=== PATIENT | female | born 1975 | race Caucasian/White ===

== ENCOUNTER 2016-11-18 17:43 | Emergency (ER) | payer OTHER ==
--- NOTE | 2016-11-18 18:02 | EDM.PDOC ---
ED HPI GENERAL MEDICAL PROBLEM - General Chief Complaint: Skin Complaint Stated Complaint: PT HAS SORE ON LT SIDE OF HEAD Time Seen by Provider: 11/18/16 17:54 - History of Present Illness INITIAL COMMENTS - FREE TEXT/NARRATIVE: HISTORY AND PHYSICAL: History of present illness: Patient's 41-year-old white female presents with a concern of a scalp lesion left postauricular area she states she's had similar isolated lesions in the past related to shingles on prior episodes this required infectious disease specialist to identify due to the atypical distribution. Patient denies fever chills nausea vomiting or any other concern Review of systems: As per history of present illness and below otherwise all systems reviewed and negative. Past medical history: As per history of present illness and as reviewed below otherwise noncontributory. Surgical history: As per history of present illness and as reviewed below otherwise noncontributory. Social history: No reported history of drug or alcohol abuse. Family history: As per history of present illness and as reviewed below otherwise noncontributory. Physical exam: HEENT: Patient has an area on her postauricular scalp that's excoriated with little bit of erythema and warmth there is no fluctuance no significant induration this does not appear to represent shingles in any manner that I have seen, normocephalic, pupils reactive, negative for conjunctival pallor or scleral icterus, mucous membranes moist, throat clear, neck supple, nontender, trachea midline. Lungs: Clear to auscultation, breath sounds equal bilaterally, chest nontender. Heart: S1S2, regular, negative for clicks, rubs, or JVD. Abdomen: Soft, nondistended, nontender. Negative for masses or hepatosplenomegaly. Negative for costovertebral tenderness. Pelvis: Stable nontender. Genitourinary: Deferred. Rectal: Deferred. Extremities: Atraumatic, negative for cords or calf pain. Neurovascular unremarkable. Neuro: Awake, alert, oriented. Cranial nerves II through XII unremarkable. Cerebellum unremarkable. Motor and sensory unremarkable throughout. Exam nonfocal. Diagnostics: None Therapeutics: None Impression: #1 cutaneous lesion left postauricular scalp etiology to be determined Definitive disposition and diagnosis as appropriate pending reevaluation and review of above. - Related Data Allergies Allergy/AdvReac Type Severity Reaction Status Date / Time cefixime [From Suprax] Allergy Hives Verified 11/18/16 17:50 vancomycin Allergy Hives Verified 11/18/16 17:50 Home Meds: Home Meds Cetirizine HCl/Pseudoephedrine [ZyrTEC-D] 1 tab PO Q12H 10/11/14 [History] Phentermine 30 mg PO DAILY 10/11/14 [History] medroxyPROGESTERone [Depo-Provera Contraceptive] 150 mg IM ASDIRECTED 10/11/14 [ History] Past Medical History Other HEENT History: allergies Other OB/BYN History: ovarian tumor removal x 2, c-sections, uterine exploratory surgery - Past Surgical History Other Oncologic Surgeries/Procedures: ovarian biopsies with tumor removal x 2 Social & Family History - Tobacco Use Smoking Status *Q: Never Smoker Second Hand Smoke Exposure: No - Alcohol Use Days Per Week of Alcohol Use: 0 - Recreational Drug Use Recreational Drug Use: No ED ROS GENERAL - Review of Systems Review Of Systems: ROS reveals no pertinent complaints other than HPI. ED EXAM, SKIN/RASH Exam: See Below (See dictation) Course - Vital Signs Text/Narrative:: Discussed with patient possible etiologies including atypical presentation of zoster she understands and acknowledges the inability to definitively diagnose that Hipolito expressed how her oncologist and primary medical doctor on prior Pretz was unable to them that this did ultimately involve infectious disease at this point she would prefer treatment as if this may represent a bacterial infection understanding limitations from a diagnostic standpoint in opts for empiric treatment as planned with Bactrim and pain management to follow with her doctor return as needed as discussed Departure - Departure Time of Disposition: 17:59 Disposition: Home, Self-Care 01 Condition: Good Clinical Impression: Cellulitis - Discharge Information Forms: ED Department Discharge Additional Instructions: The following information is given to patients seen in the emergency department who are being discharged to home. This information is to outline your options for follow-up care. We provide all patients seen in our emergency department with a follow-up referral. The need for follow-up, as well as the timing and circumstances, are variable depending upon the specifics of your emergency department visit. If you don't have a primary care physician on staff, we will provide you with a referral. We always advise you to contact your personal physician following an emergency department visit to inform them of the circumstance of the visit and for follow-up with them and/or the need for any referrals to a consulting specialist. The emergency department will also refer you to a specialist when appropriate. This referral assures that you have the opportunity for followup care with a specialist. All of these measure are taken in an effort to provide you with optimal care, which includes your followup. Under all circumstances we always encourage you to contact your private physician who remains a resource for coordinating your care. When calling for followup care, please make the office aware that this follow-up is from your recent emergency room visit. If for any reason you are refused follow-up, please contact the [facility] emergency department at and asked to speak to the emergency department charge nurse. Bactrim Tylenol No. 3 as prescribed follow-up primary medical doctor on today's return as needed as discussed
== END 2016-11-18 18:32 | disposition home or self-care (01) ==
LOC: MW.ED 17:43
CPT/HCPCS: 99282

== ENCOUNTER 2018-11-25 01:05 | Emergency (ER) | payer OTHER ==
[2018-11-25] MEDS ORDERED: Albuterol/Ipratropium 3.0-0.5 MG/3 ML Neb Soln ONE (01:25)
--- NOTE | 2018-11-25 01:53 | EDM.PDOC ---
<Victor Hugo Rogers - Last Filed: 11/25/18 01:54> ED HPI GENERAL MEDICAL PROBLEM - General Chief Complaint: Respiratory Problem Stated Complaint: ALLERGY Time Seen by Provider: 11/25/18 01:15 - History of Present Illness INITIAL COMMENTS - FREE TEXT/NARRATIVE: HISTORY AND PHYSICAL: History of present illness: 43-year-old female with a history of seasonal allergies presents to the emergency department for the evaluation of her shortness of breath.The patient informed me her allergies will have occasional flares when humidity rises which produces increased cough and shortness of breath. She had an uneventful day however this evening at around approximately 11 PM she developed shortness of breath, nasal congestion and a cough. She is concerned that she is having allergy exacerbation. Her to arriving to the emergency department She denies any recent fevers or chills. She has had no recent nausea or vomiting. Review of systems: As per history of present illness and below otherwise all systems reviewed and negative. Past medical history: As per history of present illness and as reviewed below otherwise noncontributory. Surgical history: As per history of present illness and as reviewed below otherwise noncontributory. Social history: No reported history of drug or alcohol abuse. Family history: As per history of present illness and as reviewed below otherwise noncontributory. Physical exam: Constitutional: Well developed well nourished HEENT: Atraumatic, normocephalic, pupils reactive, negative for conjunctival pallor or scleral icterus, mucous membranes moist, throat clear, neck supple, nontender, trachea midline. Lungs: Diffuse inspiratory and expiratory wheezes, breath sounds are equal. Heart: S1S2, regular, negative for clicks, rubs, or JVD. Abdomen: Soft, nondistended, nontender. Negative for masses or hepatosplenomegaly. Negative for costovertebral tenderness. Pelvis: Stable nontender. Genitourinary: Deferred. Rectal: Deferred. Extremities: Atraumatic, negative for cords or calf pain. Neurovascular unremarkable. Neuro: Awake, alert, oriented. Cranial nerves II through XII unremarkable. Cerebellum unremarkable. Motor and sensory unremarkable throughout. Exam nonfocal. Diagnostics: None Therapeutics: Duo-neb IM Solumedrol 0130: Patient's lung sounds significantly improved after nebulized DuoNeb. Bilaterally. Her respiratory effort is now easy Impression: Allergic Asthma Plan: [] Definitive disposition and diagnosis as appropriate pending reevaluation and review of above. - Related Data Allergies Allergy/AdvReac Type Severity Reaction Status Date / Time cefixime [From Suprax] Allergy Hives Verified 11/18/16 17:50 vancomycin Allergy Hives Verified 11/18/16 17:50 Home Meds: Home Meds Cyclobenzaprine [Flexeril] 10 mg PO ASDIRECTED PRN 11/18/16 [History] Meloxicam [Mobic] 15 mg PO ASDIRECTED PRN 11/18/16 [History] Zolpidem Tartrate [Ambien] 5 mg PO BEDTIME 11/18/16 [History] buPROPion HCl [Wellbutrin SR] 150 mg PO DAILY 11/18/16 [History] Past Medical History - Past Health History Medical/Surgical History: Denies Medical/Surgical History Other HEENT History: allergies 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: ovarian tumor removal x 2, c-sections, uterine exploratory surgery Musculoskeletal History: Reports: Fibromyalgia Psychiatric History: Reports: Depression - Past Surgical History Other Oncologic Surgeries/Procedures: ovarian biopsies with tumor removal x 2 Social & Family History - Family History Family Medical History: Noncontributory Course - Orders/Labs/Meds Orders: Active Orders 24 hr Category Date Time Status Communication Order [RC] STAT Care 11/25/18 01:55 Active Meds: Medications Discontinued Medications Generic Name Dose Route Start Last Admin Trade Name Freq PRN Reason Stop Dose Admin Albuterol/Ipratropium Confirm 11/25/18 01:25 Duoneb 3.0-0.5 Mg/3 Ml Administered 11/25/18 01:26 Dose 3 ml .ROUTE .STK-MED ONE Methylprednisolone Sodium Succinate 125 mg 11/25/18 01:54 Solu-Medrol IM 11/25/18 01:55 ONETIME ONE Departure - Departure Disposition: Home, Self-Care 01 Clinical Impression: Allergic asthma - Discharge Information Referrals: Marcin Page MD [Primary Care Provider] - Forms: ED Department Discharge Additional Instructions: The following information is given to patients seen in the emergency department who are being discharged to home. This information is to outline your options for follow-up care. We provide all patients seen in our emergency department with a follow-up referral. The need for follow-up, as well as the timing and circumstances, are variable depending upon the specifics of your emergency department visit. If you don't have a primary care physician on staff, we will provide you with a referral. We always advise you to contact your personal physician following an emergency department visit to inform them of the circumstance of the visit and for follow-up with them and/or the need for any referrals to a consulting specialist. The emergency department will also refer you to a specialist when appropriate. This referral assures that you have the opportunity for followup care with a specialist. All of these measure are taken in an effort to provide you with optimal care, which includes your followup. Under all circumstances we always encourage you to contact your private physician who remains a resource for coordinating your care. When calling for followup care, please make the office aware that this follow-up is from your recent emergency room visit. If for any reason you are refused follow-up, please contact the [facility] emergency department at and ask to speak to the emergency department charge nurse. [facility] Primary care- [place] [id number] Push hydration and use your inhaler every 6 hours with the spacer. Been given for the next 24 hours and then every 6 hours as needed. Start the Medrol Dosepak later today and please call and schedule a follow-up appointment in the clinic. Return to ER as needed and as discussed - My Orders Last 24 Hours: My Active Orders 11/25/18 01:55 Communication Order [RC] STAT - Assessment/Plan Last 24 Hours: My Active Orders 11/25/18 01:55 Communication Order [RC] STAT <Jolie Barajas - Last Filed: 11/25/18 01:59> ED HPI GENERAL MEDICAL PROBLEM - History of Present Illness INITIAL COMMENTS - FREE TEXT/NARRATIVE: This is Dr. Barajas dictating an addendum note History and physical are as above and the patient feels significantly improved after the DuoNeb. We will give IV Solu-Medrol and a spacer for home. Patient feels comfortable with discharge home and now only has coarse breath sounds on my evaluation. ED ROS GENERAL - Review of Systems Review Of Systems: ROS reveals no pertinent complaints other than HPI. ED EXAM, GENERAL - Physical Exam Exam: See Below (See dictation) Course - Orders/Labs/Meds Orders: Active Orders 24 hr Category Date Time Status Communication Order [RC] STAT Care 11/25/18 01:55 Active Departure - Departure Time of Disposition: 01:59 Condition: Good - My Orders Last 24 Hours: My Active Orders 11/25/18 01:55 Communication Order [RC] STAT - Assessment/Plan Last 24 Hours: My Active Orders 11/25/18 01:55 Communication Order [RC] STAT
[2018-11-25] MEDS ORDERED: methylPREDNISolone Sodium Succinate 125 MG/2 ML SDV IM ONE (01:54)
[2018-11-25 02:17] VITALS: BP 131/69
== END 2018-11-25 02:32 | disposition home or self-care (01) ==
LOC: MW.ED 01:05
DX: J45.909 Unspecified asthma, uncomplicated (principal); F32.9 Major depressive disorder, single episode, unspecified; Z79.899 Other long term (current) drug therapy; Z88.1 Allergy status to other antibiotic agents
CPT/HCPCS: 96372; 99283; J2930; 99282; J7620-GY

== ENCOUNTER 2021-04-07 19:03 | Emergency (ER) | payer OTHER ==
[2021-04-07 20:56] LABS: CORONAVIRUS COVID-19 NAA NEGATIVE (NEGATIVE); INFLUENZA A NAA NEGATIVE (NEGATIVE); INFLUENZA B NAA NEGATIVE (NEGATIVE)
[2021-04-07] MEDS ORDERED: Sodium Chloride 0.9% 1,000 ML IV ONE (21:50)
[2021-04-07 22:04] LABS: CARBON DIOXIDE,CO2 25.5 mmol/L (21.0-32.0); POTASSIUM,K 3.6 mmol/L (3.5-5.1)
[2021-04-08] MEDS ORDERED: Sulfamethoxazole/Trimethoprim 800-160 MG Tab PO ONE (00:05)
[2021-04-08] MEDS ORDERED: Acetaminophen 325 MG Tab PO ONE (00:11)
[2021-04-08] MEDS ORDERED: Ketorolac 15 MG/ML SDV IVPUSH STA (00:11)
--- NOTE | 2021-04-08 00:11 | EDM.PDOC ---
ED HPI GENERAL MEDICAL PROBLEM - General Chief Complaint: Fever Stated Complaint: FEVER,NAUSEA Time Seen by Provider: 04/07/21 22:11 - History of Present Illness INITIAL COMMENTS - FREE TEXT/NARRATIVE: HISTORY AND PHYSICAL: History of present illness: This is a 46-year-old female who presents ER today secondary to fever at home. Patient reports that she had recent breast reduction by Dr. Trotter at [facility] approximately 1 to 2 weeks ago. Patient reports that she was doing well and the wounds are healing extremely well however today she started having pain and discomfort to her left lateral breast and noticed fevers at home. Patient called Dr. Trotter and was instructed to come to the ED for further evaluation. Patient denies any recent nausea, vomiting, diarrhea, dysuria, frequency, urgency, chest pain, shortness of breath, URI symptoms. Patient reports that she does have slight nasal drainage which is not new for her. Patient reports that she has a history significant for fibromyalgia. Patient reports that she has not needed any pain medicines for several days now however she reports that the pain started increasing significantly yesterday and today as required taken Page. Review of systems: As per history of present illness and below otherwise all systems reviewed and negative. Past medical history: As per history of present illness and as reviewed below otherwise noncontributory. Surgical history: As per history of present illness and as reviewed below otherwise noncontributory. Social history: No reported history of drug abuse. Family history: As per history of present illness and as reviewed below otherwise noncontributory. Physical exam: This patient was seen and evaluated during the 2019 SARS-CoV-2 novel coronavirus pandemic period. Community viral transmission is ongoing at time of this encounter and the emergency department is operating under pandemic response procedures. Constitutional: Patient is oriented to person, place, and time. Appears well- developed and well-nourished. No distress. HEENT: Moist mucous membranes Head: Normocephalic and atraumatic Eyes: Right eye exhibits no discharge. Left eye exhibits no discharge. No scleral icterus Neck: Normal range of motion. No tracheal deviation present. Cardiovascular: Normal rate and regular rhythm. Pulmonary: Effort normal, no respiratory distress. Abdominal: No distention Musculoskeletal: Normal range of motion Neurologic: Alert and oriented to person, place and time. Skin: Mountain, warm and dry. Psychiatric: Normal mood and affect. Behavior is normal. Judgment and thought content normal. Nursing note and vital signs have been reviewed Patient's ER physical exam is significant for well-healing surgical incisions to her right breast with no fluctuance or erythema tenderness or warmth. Patient's left breast has well-healing incision however she does have some erythema and swelling tenderness and warmth to her lateral left breast. No fluctuance is identified. No purulent drainage noted. Diagnostics: WBC count markedly elevated at 19,000. Patient's lactic acid level is normal. Patient has a normal anion gap with a normal bicarb. Patient's Covid/influenza test were negative. Therapeutics: NSS x1 L, Bactrim DS No. 2 p.o. Assessment and plan: This is a 46-year-old female who presents ER today secondary to fever at home with increasing pain to her left breast. Patient is status post breast reduction. Patient spoken to Dr. Sergo Schuster and was instructed to come to the ED for further evaluation. Initial evaluation in the ED revealed a markedly elevated WBC count. Patient's lactic acid level was normal. Patient is clinically and hemodynamically stable with a normal blood pressure and does not appear to be toxic. Patient is well-appearing in the ED and has been resting comfortably throughout her visit. While in the ED, the remainder of her labs are unremarkable. I have paged Dr. Trotter through [facility] and have left a voicemail for him to call me back so I can discuss the case with him however at this time the patient would like to go home with antibiotics. I have instructed her that if Dr. Trotter does call and has any additional instructions that I would give her a call at home and let her know. Patient was given Bactrim DS 2 tablets p.o. x1 will be discharged home with a prescription for Bactrim DS 2 tabs p.o. twice daily x10 days and instructions to call Dr. Trotter tomorrow for follow-up in the next 1 to 2 days. Reassessment at the time of disposition demonstrates that the patient is in no acute distress. The patient has remained stable throughout the entire ED visit and is without objective evidence for acute process requiring urgent intervention or hospitalization. The patient is stable for discharge, counseling is provided as documented above, discussed symptomatic treatment and specific conditions for return. I have spoken with the patient/caregiver and discussed todays findings, in addition to providing specific details for the plan of care. Questions are answered and there is agreement with the plan. Definitive disposition and diagnosis as appropriate pending reevaluation and review of above. - Related Data Allergies Allergy/AdvReac Type Severity Reaction Status Date / Time cefixime [From Suprax] Allergy Hives Verified 04/07/21 20:27 vancomycin Allergy Hives Verified 04/07/21 20:27 Home Meds: Home Meds Cyclobenzaprine [Flexeril] 10 mg PO ASDIRECTED PRN 11/18/16 [History] Meloxicam [Mobic] 15 mg PO ASDIRECTED PRN 11/18/16 [History] Zolpidem Tartrate [Ambien] 5 mg PO BEDTIME 11/18/16 [History] buPROPion HCL [Wellbutrin SR] 150 mg PO DAILY 11/18/16 [History] Past Medical History - Past Health History Medical/Surgical History: Denies Medical/Surgical History Other HEENT History: allergies Other NUTRITIONALIST History: ovarian tumor removal x 2, c-sections, uterine exploratory surgery Musculoskeletal History: Reports: Fibromyalgia Psychiatric History: Reports: Depression - Past Surgical History Other Oncologic Surgeries/Procedures: ovarian biopsies with tumor removal x 2 Social & Family History - Family History Family Medical History: No Pertinent Family History - Tobacco Use Second Hand Smoke Exposure: No - Caffeine Use Caffeine Use: Reports: None - Recreational Drug Use Recreational Drug Use: No ED ROS GENERAL - Review of Systems Review Of Systems: See Below ED EXAM, GENERAL - Physical Exam Exam: See Below Course - Vital Signs Last Recorded V/S: Last Vital Signs Temp 101.4 F H 04/07/21 20:10 Pulse 103 H 04/07/21 20:10 Resp 20 04/07/21 20:10 BP 126/56 L 04/07/21 20:10 Pulse Ox 98 04/07/21 20:10 - Orders/Labs/Meds Orders: Active Orders 24 hr Category Date Time Status CULTURE BLOOD [BC] Stat Lab 04/07/21 22:02 Received CULTURE BLOOD [BC] Stat Lab 04/07/21 22:20 Received UA RFX ISABEL AND CULT IF INDIC [URIN] Stat Lab 04/07/21 21:28 Ordered Sulfamethoxazole/Trimethoprim [Septra DS] Med 04/08/21 00:05 Once 2 tab PO ONETIME ONE Blood Culture x2 Reflex Set [OM.PC] Stat Oth 04/07/21 21:49 Ordered Medication Orders Trimethoprim/Sulfamethoxazole (Sulfamethoxazole/Trimethoprim 800-160 Mg Tab) 2 tab PO ONETIME ONE Stop: 04/08/21 00:06 Labs: Laboratory Tests 04/07/21 04/07/21 04/07/21 Range/Units 20:15 21:38 21:38 WBC 17.21 H (4.0-11.0) K/uL RBC 4.14 L (4.30-5.90) M/uL Hgb 11.9 L (12.0-16.0) g/dL Hct 35.8 L (36.0-46.0) % MCV 86.5 (80.0-98.0) fL MCH 28.7 (27.0-32.0) pg MCHC 33.2 (31.0-37.0) g/dL RDW Std Deviation 41.3 (28.0-62.0) fl RDW Coeff of Sebastian 13 (11.0-15.0) % Plt Count 384 (150-400) K/uL MPV 10.10 (7.40-12.00) fL Neut % (Auto) 83.8 H (48.0-80.0) % Lymph % (Auto) 9.4 L (16.0-40.0) % Sen[place] % (Auto) 6.5 (0.0-15.0) % Eos % (Auto) 0.2 (0.0-7.0) % Baso % (Auto) 0.1 (0.0-1.5) % Neut # (Auto) 14.4 H (1.4-5.7) K/uL Lymph # (Auto) 1.6 (0.6-2.4) K/uL Sen[place] # (Auto) 1.1 H (0.0-0.8) K/uL Eos # (Auto) 0.0 (0.0-0.7) K/uL Baso # (Auto) 0.0 (0.0-0.1) K/uL Nucleated RBC % 0.0 /100WBC Nucleated RBCs # 0 K/uL Sodium 136 (136-145) mmol/L Potassium 3.6 (3.5-5.1) mmol/L Chloride 99 (98-107) mmol/L Carbon Dioxide 25.5 (21.0-32.0) mmol/L BUN 13 (7.0-18.0) mg/dL Creatinine 1.1 H (0.6-1.0) mg/dL Est Cr Clr Drug Dosing 64.46 mL/min Estimated GFR (MDRD) 53.5 ml/min Glucose 95 (74-106) mg/dL Lactic Acid (0.4-2.0) mmol/L Calcium 9.0 (8.5-10.1) mg/dL Total Bilirubin 0.6 (0.2-1.0) mg/dL AST 9 L (15-37) IU/L ALT 18 (14-63) IU/L Alkaline Phosphatase 73 (46-116) U/L Total Protein 7.5 (6.4-8.2) g/dL Albumin 2.8 L (3.4-5.0) g/dL Globulin 4.7 H (2.6-4.0) g/dL Albumin/Globulin Ratio 0.6 L (0.9-1.6) Lipase 145 (73-393) U/L HCG, Qual (NEG) Influenza Type A RNA NEGATIVE (NEGATIVE) Influenza Type B RNA NEGATIVE (NEGATIVE) SARS-CoV-2 RNA (IVETH) NEGATIVE (NEGATIVE) 04/07/21 04/07/21 Range/Units 21:38 22:02 WBC (4.0-11.0) K/uL RBC (4.30-5.90) M/uL Hgb (12.0-16.0) g/dL Hct (36.0-46.0) % MCV (80.0-98.0) fL MCH (27.0-32.0) pg MCHC (31.0-37.0) g/dL RDW Std Deviation (28.0-62.0) fl RDW Coeff of Sebastian (11.0-15.0) % Plt Count (150-400) K/uL MPV (7.40-12.00) fL Neut % (Auto) (48.0-80.0) % Lymph % (Auto) (16.0-40.0) % Sen[place] % (Auto) (0.0-15.0) % Eos % (Auto) (0.0-7.0) % Baso % (Auto) (0.0-1.5) % Neut # (Auto) (1.4-5.7) K/uL Lymph # (Auto) (0.6-2.4) K/uL Sen[place] # (Auto) (0.0-0.8) K/uL Eos # (Auto) (0.0-0.7) K/uL Baso # (Auto) (0.0-0.1) K/uL Nucleated RBC % /100WBC Nucleated RBCs # K/uL Sodium (136-145) mmol/L Potassium (3.5-5.1) mmol/L Chloride (98-107) mmol/L Carbon Dioxide (21.0-32.0) mmol/L BUN (7.0-18.0) mg/dL Creatinine (0.6-1.0) mg/dL Est Cr Clr Drug Dosing mL/min Estimated GFR (MDRD) ml/min Glucose (74-106) mg/dL Lactic Acid 0.7 (0.4-2.0) mmol/L Calcium (8.5-10.1) mg/dL Total Bilirubin (0.2-1.0) mg/dL AST (15-37) IU/L ALT (14-63) IU/L Alkaline Phosphatase (46-116) U/L Total Protein (6.4-8.2) g/dL Albumin (3.4-5.0) g/dL Globulin (2.6-4.0) g/dL Albumin/Globulin Ratio (0.9-1.6) Lipase (73-393) U/L HCG, Qual NEGATIVE (NEG) Influenza Type A RNA (NEGATIVE) Influenza Type B RNA (NEGATIVE) SARS-CoV-2 RNA (IVETH) (NEGATIVE) Meds: Medications Generic Name Dose Route Start Last Admin Trade Name Freq PRN Reason Stop Dose Admin Trimethoprim/Sulfamethoxazole 2 tab 04/08/21 00:05 Sulfamethoxazole/Trimethoprim 800-160 Mg Tab PO 04/08/21 00:06 ONETIME ONE Discontinued Medications Generic Name Dose Route Start Last Admin Trade Name Freq PRN Reason Stop Dose Admin Sodium Chloride 1,000 mls @ 999 mls/hr 04/07/21 21:50 04/07/21 22:14 Normal Saline IV 04/07/21 22:50 999 mls/hr STAT ONE Administration Departure - Departure Time of Disposition: 00:10 Disposition: Home, Self-Care 01 Condition: Good Clinical Impression: Postoperative wound infection - Discharge Information Instructions: Wound Infection Referrals: Marcin Page MD [Primary Care Provider] - Additional Instructions: You were seen and evaluated in ER today secondary to a fever at home with increased pain and swelling to your left breast. Your fever is most likely secondary to a postoperative wound infection from your breast reduction. I have attempted to contact Dr. Trotter however have not yet heard back from him. Given your high white count, pain and swelling to your left breast, I feel that this is the likely culprit to your fever and infection. You will be started on an antibiotic, Bactrim DS to take 2 tablets twice a day for [address] Trotter in the morning for a follow-up appointment as soon as possible. Please return the ER if he develop any new or concerning symptoms. If Dr. Trotter calls back and would like us to do anything different, I will contact you and let you know. The following information is given to patients seen in the emergency department who are being discharged to home. This information is to outline your options for follow-up care. We provide all patients seen in our emergency department with a follow-up referral. The need for follow-up, as well as the timing and circumstances, are variable depending upon the specifics of your emergency department visit. If you don't have a primary care physician on staff, we will provide you with a referral. We always advise you to contact your personal physician following an emergency department visit to inform them of the circumstance of the visit and for follow-up with them and/or the need for any referrals to a consulting specialist. The emergency department will also refer you to a specialist when appropriate. This referral assures that you have the opportunity for follow-up care with a specialist. All of these measure are taken in an effort to provide you with optimal care, which includes your follow-up. Under all circumstances we always encourage you to contact your private physician who remains a resource for coordinating your care. When calling for follow-up care, please make the office aware that this follow-up is from your recent emergency room visit. If for any reason you are refused follow-up, please contact the [facility] Emergency Department at and asked to speak to the emergency department charge nurse. [facility] [address] [place] [id number] [facility] [address] [place] [id number] Sepsis Event Note (ED) - Evaluation Sepsis Screening Result: No Definite Risk - Focused Exam Vital Signs: Vital Signs Temp Pulse Resp BP Pulse Ox 04/07/21 20:10 101.4 F H 103 H 20 126/56 L 98 - My Orders Last 24 Hours: My Active Orders 04/08/21 00:05 Sulfamethoxazole/Trimethoprim [Septra DS] 2 tab PO ONETIME ONE - Assessment/Plan Last 24 Hours: My Active Orders 04/08/21 00:05 Sulfamethoxazole/Trimethoprim [Septra DS] 2 tab PO ONETIME ONE
[2021-04-08 01:07] VITALS: BP 125/87; PULSE 87
== END 2021-04-08 00:20 | disposition home or self-care (01) ==
LOC: MW.ED 19:03
DX: T81.49XA Infection following a procedure, other surgical site, initial encounter (principal); Z88.8 Allergy status to other drugs, medicaments and biological substances; Z79.899 Other long term (current) drug therapy; Z20.822 Contact with and (suspected) exposure to COVID-19
CPT/HCPCS: 0240U; 36415; 80053; 83605; 83690; 84703; 85025; 87040; 96374; 99284; A9270; J1885; J7030

== ENCOUNTER 2022-04-12 20:51 | Emergency (ER) | payer OTHER ==
[2022-04-12] MEDS ORDERED: Sodium Chloride 0.9% 1,000 ML IV ONE (22:28)
[2022-04-12 22:37] LABS: CORONAVIRUS COVID-19 NAA NEGATIVE (NEGATIVE); INFLUENZA A NAA NEGATIVE (NEGATIVE); INFLUENZA B NAA NEGATIVE (NEGATIVE)
[2022-04-12 23:53] LABS: CARBON DIOXIDE,CO2 24.5 mmol/L (21.0-32.0); POTASSIUM,K 4.1 mmol/L (3.5-5.1)
[2022-04-13] MEDS ORDERED: Alum Hydro/Mag Hydro/Simeth XS 15 ML, Lidocaine 2% 5 ML PO ONE ×2 (00:14)
[2022-04-13 00:37] VITALS: BP 132/67; PULSE 62
== END 2022-04-13 00:36 | disposition home or self-care (01) ==
LOC: MW.ED 20:51
DX: R05.9 Cough, unspecified (principal); Z88.1 Allergy status to other antibiotic agents; Z88.8 Allergy status to other drugs, medicaments and biological substances; Z20.822 Contact with and (suspected) exposure to COVID-19
CPT/HCPCS: 0240U; 36415; 71045; 80053; 81001; 83735; 84703; 85025; 96360; 99283; A9270; J7030

== ENCOUNTER 2022-05-19 08:47 | Day surgery (SDC) | payer OTHER ==
[~2022-05-19 08:47] MED LIST: Lactated Ringers 1,000 ML IV SCH; Sodium Chloride 0.9% 10 ML Syringe FLUSH PRN; Sodium Chloride 0.9% 2.5 ML Syringe FLUSH PRN; Sodium Chloride 0.9% 20 ML SDV IV PRN
[2022-05-19] MEDS ORDERED: Propofol 200 MG/20 ML SDV ONE (10:33)
[2022-05-19] MEDS ORDERED: Lidocaine 2% 5 ML SDV ONE (10:35)
[2022-05-19 13:14] VITALS: BP 112/70; PULSE 76
== END 2022-05-19 12:05 | disposition home or self-care (01) ==
LOC: MW.SDS 08:47
PROVIDERS: ATTEND Surgery
DX: Z12.11 Encounter for screening for malignant neoplasm of colon (principal); D12.7 Benign neoplasm of rectosigmoid junction; D12.2 Benign neoplasm of ascending colon; D12.0 Benign neoplasm of cecum; D12.3 Benign neoplasm of transverse colon; J45.909 Unspecified asthma, uncomplicated; M79.10 Myalgia, unspecified site; F41.9 Anxiety disorder, unspecified; Z79.899 Other long term (current) drug therapy; Z90.49 Acquired absence of other specified parts of digestive tract; Z98.890 Other specified postprocedural states; Z68.32 Body mass index [BMI] 32.0-32.9, adult; Z87.891 Personal history of nicotine dependence
CPT/HCPCS: 45380; 81025; J2704; J7120